=== PATIENT | male | born 1995 | race Two or more races ===

== ENCOUNTER 2017-10-22 23:32 | Inpatient (IN) | payer BC, OTHER ==
[~2017-10-22] VITALS: Ht 177.8 cm; Wt 70.8 kg
[2017-10-22] MEDS ORDERED: ONDANSETRON 2MG/ML, 2ML ONE (23:47)
[2017-10-23] MEDS ORDERED: ONDANSETRON 2MG/ML, 2ML IVPush ONE
[2017-10-23] MEDS ORDERED: SODIUM CHLORIDE FLUSH 10ML SYR IVF ONE
[2017-10-23] MEDS ORDERED: LIDOCAINE 1%, 20ML ONE (00:18)
[2017-10-23 00:28] LABS: HEMATOCRIT 42.7 % (39.2-51.8); HEMOGLOBIN 14.4 g/dL (13.7-18.0); WHITE BLOOD COUNT 16.9 x10^3/uL (3.4-10)
[2017-10-23 00:34] LABS: BLOOD UREA NITROGEN 14 mg/dL (7-18)
[2017-10-23] MEDS ORDERED: SODIUM CHLORIDE 0.9% 1,000ML IVBOLUS ONE ×2 (01:00)
[2017-10-23] MEDS ORDERED: OMNIPAQUE 350 MG/ML, 100ML BOTTLE ONE (01:32)
[2017-10-23] MEDS ORDERED: MAGNESIUM SULFATE PMX 2GM/50ML 50 ML IV ONE (02:30)
[2017-10-23] MEDS ORDERED: ACETAMINOPHEN 325 MG TABLET PO PRN ×2 (02:30→20:30)
[2017-10-23] MEDS ORDERED: TEMAZEPAM 15 MG CAPSULE PO PRN ×2 (02:30→20:30)
[2017-10-23 02:52] VITALS: BP 132/79
[2017-10-23] MEDS: SODIUM CHLORIDE 0.9% 1,000 ML IV SCH ×3 (03:51→20:26)
[2017-10-23] MEDS ORDERED: ONDANSETRON 2MG/ML, 2ML IVPush PRN ×2 (04:00→20:30)
[2017-10-23 08:19] VITALS: BP 118/64
[2017-10-23 08:33] VITALS: BP 118/67
[2017-10-23 13:33] VITALS: BP 116/69
[2017-10-23 20:23] VITALS: BP 120/72
[2017-10-24 03:19] VITALS: BP 122/72
[2017-10-24] MEDS: SODIUM CHLORIDE 0.9% 1,000 ML IV SCH (04:18)
[2017-10-24 07:46] VITALS: BP 125/78
[2017-10-24] MEDS ORDERED: FLU VACC QS2017-18 (36MOS+) UP/PF 0.5 ML IM-VACC ONE (10:00)
== END 2017-10-24 11:23 | disposition home or self-care (01) | DRG 309 ==
LOC: ED 23:59 → EDIP 10-23 02:04 → SUATTDRO 10-23 02:14 → 5SO 10-23 02:55
PROVIDERS: ADMIT Internal Medicine; ATTEND Internal Medicine
DX: I44.2 Atrioventricular block, complete (principal); K56.7 Ileus, unspecified; R56.9 Unspecified convulsions; S09.90XA Unspecified injury of head, initial encounter; K52.9 Noninfective gastroenteritis and colitis, unspecified; S01.111A Laceration without foreign body of right eyelid and periocular area, initial encounter; E86.0 Dehydration; G43.909 Migraine, unspecified, not intractable, without status migrainosus; R55 Syncope and collapse; X58.XXXA Exposure to other specified factors, initial encounter; Y93.89 Activity, other specified; Y92.89 Other specified places as the place of occurrence of the external cause; Y99.8 Other external cause status
CPT/HCPCS: 12001; 36415; 70450; 71010; 74177; 80048; 80307; 82040; 83735; 84436; 84443; 85025; 87324; 89055; 93005; 93306; 96360; J2405; Q9967; G0479; J3475; J7030